=== PATIENT | female | born 1995 | race Caucasian/White ===

== ENCOUNTER → 2020-08-15 | Outpatient (CLI) | payer OTHER | LOC: HEART CORB 16:34 | DX: R00.2 Palpitations (principal) ==

== ENCOUNTER → 2020-08-24 | Outpatient (CLI) | payer OTHER | LOC: HEART CORB 13:55 | DX: R00.2 Palpitations (principal); R07.2 Precordial pain; R94.31 Abnormal electrocardiogram [ECG] [EKG]; I07.1 Rheumatic tricuspid insufficiency | CPT/HCPCS: 93306 ==